=== PATIENT | male | born 1970 | race Caucasian/White ===

== ENCOUNTER 2016-08-24 10:27 | Emergency (ER) | payer SELFPAY ==
[2016-08-24] MEDS ORDERED: Sodium Chloride 0.9% 2.5 ML Syringe FLUSH PRN (10:41)
[2016-08-24] MEDS ORDERED: Sodium Chloride 0.9% 10 ML Syringe FLUSH PRN (10:41)
--- NOTE | 2016-08-24 10:55 | EDM.PDOC ---
ED HPI ENT - General Chief Complaint: ENT Problem Stated Complaint: SORE THROAT Time Seen by Provider: 08/24/16 10:51 Source of Information: Reports: Patient History Limitations: Reports: No limitations - History of Present Illness INITIAL COMMENTS - FREE TEXT/NARRATIVE: HISTORY AND PHYSICAL: [46-year-old male presenting with edema left side of his throat under his tongue ] History of Present Illness: [Started to have a small amount of swelling last week today increasing edema and tenderness Denies cough cold fever no sore throat Patient is a smoker] Review of Systems: As per history of present illness and below otherwise all systems reviewed and negative. Past medical history: As per history of present illness and as reviewed below otherwise noncontributory. Surgical history: As per history of present illness and as reviewed below otherwise noncontributory. Social history: No reported history of drug or alcohol abuse. Family history: As per history of present illness and as reviewed below otherwise noncontributory. Physical exam: Alert and oriented gentleman who is cooperative with examination HEENT: Atraumatic, normocehpalic, pupils reactive, negative for conjunctival pallor or scleral icterus, mucous membranes moist, throat clear, neck supple, nontender, trachea midline. Exquisitely tender with palpation to the area under his tongue on the left. Mild erythema present. Tender with palpation to underhis chin, edema with firmness, exquisite tenderness. Lungs: Mild wheezing auscultation, breath sounds equal bilaterally, chest non tender. Heart: S1S2, regular, negative for clicks, rubs, or JVD. Extremities: Atraumatic, negative for cords or calf pain. Neurovascular unremarkable. Neuro: Awake, alert, oriented. Cranial nerves II through XII unremarkable. Cerebellum unremarkable. Motor and sensory unremarkable throughout. Exam nonfocal. Soft tissue neck CT does show a 7 mm salivary stone. Discussed this with the patient who is from [place] will be going home next week and will followup with the maxio-facial specialist there Diagnostics: [CBC CMP soft tissue neck CT] Therapeutics: [Offer of Toradol IM , declined] Impression: [salivary stone] Plan: [lemon drops/ sour candy to salivate more Augmentin 875mg bid for 1 week copy of the CT scan given to patient for follow up] Definitive disposition and diagnosis as appropriate pending reevaluation and review of above. Timing/Duration: Reports: Day(s): Severity: moderate Location: Reports: mouth, throat Quality: Reports: Ache Improves with: Reports: None Associated Symptoms: Reports: no other symptoms - Related Data Allergies/ADRs: Allergies Allergy/AdvReac Type Severity Reaction Status Date / Time No Known Allergies Allergy Verified 08/24/16 10:34 Home Meds: Home Meds . [No Known Home Meds] 08/24/16 [History] Past Medical History - Past Health History Medical/Surgical History: Denies Medical/Surgical History - Past Surgical History HEENT Surgical History: Reports: Tonsillectomy GI Surgical History: Reports: Appendectomy Social & Family History - Family History Family Medical History: Noncontributory - Tobacco Use Smoking Status *Q: Current Every Day Smoker Years of Tobacco use: 20 Packs/Tins Daily: 1 Used Tobacco, but Quit: No Second Hand Smoke Exposure: Yes - Caffeine Use Caffeine Use: Reports: Soda Other Caffeine Use: 4 per day - Recreational Drug Use Recreational Drug Use: No ED ROS ENT - Review of Systems Review Of Systems: ROS reveals no pertinent complaints other than HPI. ED EXAM, ENT - Physical Exam Exam: See Below (see dictation) Course - Vital Signs Last Recorded V/S: Last Vital Signs Temp 36.5 C 08/24/16 10:35 Pulse 85 08/24/16 10:35 Resp 16 08/24/16 10:35 BP 138/92 H 08/24/16 10:35 Pulse Ox 95 08/24/16 10:35 - Orders/Labs/Meds Orders: Active Orders 24 hr Category Date Time Status Soft Tissue Neck w Cont [CT] Stat Exams 08/24/16 10:41 Taken Sodium Chloride 0.9% [Saline Flush] Med 08/24/16 10:41 Active 10 ml FLUSH ASDIRECTED PRN Sodium Chloride 0.9% [Saline Flush] Med 08/24/16 10:41 Active 2.5 ml FLUSH ASDIRECTED PRN Saline Lock Insert [OM.PC] Stat Oth 08/24/16 10:41 Ordered Medication Orders Sodium Chloride (Saline Flush) 10 ml FLUSH ASDIRECTED PRN PRN Reason: Keep Vein Open Sodium Chloride (Saline Flush) 2.5 ml FLUSH ASDIRECTED PRN PRN Reason: Keep Vein Open Labs: Laboratory Tests 08/24/16 08/24/16 Range/Units 10:51 10:51 WBC 11.32 H (4.0-11.0) K/uL RBC 5.45 (4.50-5.90) M/uL Hgb 16.5 (13.0-17.0) g/dL Hct 48.6 (38.0-50.0) % MCV 89.2 (80.0-98.0) fL MCH 30.3 (27.0-32.0) pg MCHC 34.0 (31.0-37.0) g/dL RDW Std Deviation 44.2 (28.0-62.0) fl RDW Coeff of Cordelia 14 (11.0-15.0) % Plt Count 338 (150-400) K/uL MPV 9.80 (7.40-12.00) fL Neut % (Auto) 64.9 (48.0-80.0) % Lymph % (Auto) 26.3 (16.0-40.0) % Rush % (Auto) 6.4 (0.0-15.0) % Eos % (Auto) 2.1 (0.0-7.0) % Baso % (Auto) 0.3 (0.0-1.5) % Neut # (Auto) 7.3 H (1.4-5.7) K/uL Lymph # (Auto) 3.0 H (0.6-2.4) K/uL Rush # (Auto) 0.7 (0.0-0.8) K/uL Eos # (Auto) 0.2 (0.0-0.7) K/uL Baso # (Auto) 0.0 (0.0-0.1) K/uL Nucleated RBC % 0.0 /100WBC Nucleated RBCs # 0 K/uL Sodium 138 (136-146) mmol/L Potassium 4.3 (3.5-5.1) mmol/L Chloride 105 (98-110) mmol/L Carbon Dioxide 21 (21-31) mmol/L BUN 15 (6.0-23.0) mg/dL Creatinine 0.9 (0.6-1.5) mg/dL Est Cr Clr Drug Dosing 118.37 mL/min Estimated GFR (MDRD) > 60.0 ml/min Glucose 105 (60-110) mg/dL Calcium 9.6 (8.8-10.8) mg/dL Total Bilirubin 0.4 (0.1-1.5) mg/dL AST 17 (5-40) IU/L ALT 21 (8-54) IU/L Alkaline Phosphatase 56 (40-150) Total Protein 7.6 (6.0-8.0) g/dL Albumin 4.4 (3.5-5.0) g/dL Globulin 3.2 (2.0-3.5) g/dL Albumin/Globulin Ratio 1.4 (1.3-2.8) Meds: Medications Generic Name Dose Route Start Last Admin Trade Name Freq PRN Reason Stop Dose Admin Sodium Chloride 10 ml 08/24/16 10:41 Saline Flush FLUSH ASDIRECTED PRN Keep Vein Open Sodium Chloride 2.5 ml 08/24/16 10:41 Saline Flush FLUSH ASDIRECTED PRN Keep Vein Open Discontinued Medications Generic Name Dose Route Start Last Admin Trade Name Freq PRN Reason Stop Dose Admin Iopamidol 80 ml 08/24/16 11:49 08/24/16 11:51 Isovue-370 (76%) IVPUSH 08/24/16 11:50 80 ml ONETIME STA Administration Departure - Departure Time of Disposition: 12:15 Disposition: Home, Self-Care 01 Condition: good Clinical Impression: Salivary duct stone Forms: ED Department Discharge Additional Instructions: The following information is given to patients seen in the emergency department who are being discharged to home. This information is to outline your options for follow-up care. We provide all patients seen in our emergency department with a follow-up referral. The need for follow-up, as well as the timing and circumstances, are variable depending upon the specifics of your emergency department visit. If you don't have a primary care physician on staff, we will provide you with a referral. We always advise you to contact your personal physician following an emergency department visit to inform them of the circumstance of the visit and for follow-up with them and/or the need for any referrals to a consulting specialist. The emergency department will also refer you to a specialist when appropriate. This referral assures that you have the opportunity for followup care with a specialist. All of these measure are taken in an effort to provide you with optimal care, which includes your followup. Under all circumstances we always encourage you to contact your private physician who remains a resource for coordinating your care. When calling for followup care, please make the office aware that this follow-up is from your recent emergency room visit. If for any reason you are refused follow-up, please contact the [facility] emergency department at and asked to speak to the emergency department charge nurse. Discussion for Augmentin 875 one tablet twice a day for 7 days Lemon drops/or similar products to help salivate Follow up with a maxio-facial specialist to remove the stone - My Orders Last 24 Hours: My Active Orders 08/24/16 10:41 Soft Tissue Neck w Cont [CT] Stat Sodium Chloride 0.9% [Saline Flush] 10 ml FLUSH ASDIRECTED PRN Sodium Chloride 0.9% [Saline Flush] 2.5 ml FLUSH ASDIRECTED PRN Saline Lock Insert [OM.PC] Stat - Assessment/Plan Last 24 Hours: My Active Orders 08/24/16 10:41 Soft Tissue Neck w Cont [CT] Stat Sodium Chloride 0.9% [Saline Flush] 10 ml FLUSH ASDIRECTED PRN Sodium Chloride 0.9% [Saline Flush] 2.5 ml FLUSH ASDIRECTED PRN Saline Lock Insert [OM.PC] Stat
[2016-08-24 11:23] LABS: CHLORIDE,CL 105 mmol/L (98-110); SODIUM,NA 138 mmol/L (136-146)
[2016-08-24] MEDS ORDERED: Iopamidol 755 Mg/ML 100 ML Bottle IVPUSH STA (11:49)
[2016-08-24 12:27] VITALS: BP 132/70
--- NOTE | 2016-08-26 16:37 | CT ---
EXAM DATE: 08/24/16 PATIENT'S AGE: 46 Patient: MARGOT MADISON Facility: [place], [place] Site . Site : [id number] Study: CT ST Neck [id number]/[id number] 11:53:09 AM Ordering Physician: Doctor Acosta Final Report: Indication: Neck pain. Swelling of the left mandible Technique: CT soft tissue neck with IV contrast was acquired from the skullbase to the thoracic inlet. No comparisons. Findings: Visualized posterior fossa structures within normal limits. The thyroid, submandibular and parotid glands are within normal limits. The cervical airway is widely patent. Vallecula and piriform sinuses are within normal limits. Visualized pulmonary apices are grossly unremarkable. Shotty bilateral level 1 and level 2 lymph nodes are nonspecific and likely reactive in nature. The palatine tonsils are within normal limits. No suspicious fluid collections. No convincing evidence suspicious enhancing masses seen within the soft tissues in neck. There is a 7 millimeter sialolith in the anterior left lingual space. There is enlargement of the left sublingual gland. Impression: 1. Shotty bilateral level 1 and level 2 lymph nodes are nonspecific but likely reactive in nature. 2. Sialolith within the anterior left lingual space with enlargement of the left sublingual gland compatible with sialoadenitis 3. No radiographic evidence of peripherally enhancing fluid collections. 4. Preliminary results were discussed with ordering doctor at 12 p.m. Dictated by Bird Martinez MD @ 08/24/2016 12:03:08 PM Dictated by: Bird Martinez MD @ 08/24/2016 12:03:18 (Electronic Signature) Report Signed by Proxy. WILLIAM
== END 2016-08-24 12:25 | disposition home or self-care (01) ==
LOC: MW.ED 10:27
DX: K11.5 Sialolithiasis (principal); F17.210 Nicotine dependence, cigarettes, uncomplicated; Z98.890 Other specified postprocedural states; Z90.49 Acquired absence of other specified parts of digestive tract
CPT/HCPCS: 70491; 80053; 85025; 99283; Q9967